=== PATIENT | male | born 1970 | race Caucasian/White ===

== ENCOUNTER → 2017-07-02 | Outpatient (CLI) | payer OTHER ==
[~2017-07-02] MED LIST: LEVE500T PO; LISI-788 PO; NRV/10 PO
[2017-07-02 16:53] LABS: HEMATOCRIT 46.4 % (42-52); HEMOGLOBIN 16.2 g/dL (14.0-18.0); MEAN CORPUSCULAR HEMOGLOBIN 27.9 pg (25-34); MEAN CORPUSCULAR HGB CONC 34.9 g/dl (32-36); MEAN PLATELET VOLUME 9.5 fL (7.4-10.4); PLATELET COUNT 171 K/uL (130-400); RED CELL DISTRIBUTION WIDTH CV 14.1 % (11.5-14.5); RED CELL DISTRIBUTION WIDTH SD 40.3 fL (36.4-46.3); WHITE BLOOD COUNT 6.51 K/uL (4.8-10.8)
[2017-07-02 17:07] LABS: BLOOD UREA NITROGEN 16 mg/dl (7-18); CALCIUM 8.7 mg/dl (8.5-10.1); CARBON DIOXIDE 29 mmol/L (21-32); CREATININE 1.07 mg/dl (0.60-1.40); GLUCOSE 104 mg/dl (70-99); POTASSIUM 3.6 mmol/L (3.5-5.1); SODIUM 135 mmol/L (136-145)
== END | disposition home or self-care (01) ==
LOC: C.LABBC 14:16
PROVIDERS: ATTEND Family Medicine
DX: I10 Essential (primary) hypertension (principal)